=== PATIENT | male | born 1950 | race Two or more races ===

== ENCOUNTER 2017-12-09 11:36 | Outpatient (CLI) | payer OTHER | END 2017-12-09 12:06 | disposition home or self-care (01) | LOC: LAB 11:36 | DX: I10 Essential (primary) hypertension (principal); E74.9 Disorder of carbohydrate metabolism, unspecified; N40.0 Benign prostatic hyperplasia without lower urinary tract symptoms; K62.5 Hemorrhage of anus and rectum; N52.9 Male erectile dysfunction, unspecified; M60.9 Myositis, unspecified ==